=== PATIENT | male | born 1985 | race African-American/Black ===

== ENCOUNTER 2017-07-23 11:18 | Emergency (ER) | payer OTHER ==
[~2017-07-23] VITALS: Ht 188 cm; Wt 117.9 kg
[2017-07-23] MEDS ORDERED: IV NORMAL SALINE 1,000ML 1,000 ML IV ONE (12:00)
[2017-07-23 12:10] LABS: BASO # 0.1 x10^3/uL (0.0-0.2); BASO % 1 % (0-3); EOS # 0.1 x10^3/uL (0.0-0.7); EOS % 1 % (0-3); HEMATOCRIT 47.7 % (39.0-53.0); HEMOGLOBIN 15.5 g/dL (13.0-17.5); LYMPH # 1.3 x10^3/uL (1.0-4.8); LYMPH % 17 % (24-48); MEAN CORPUSCULAR HEMOGLOBIN 29 pg (25-35); MEAN CORPUSCULAR HGB CONC 33 g/dL (31-37); MEAN CORPUSCULAR VOLUME 88 fL (79-100); MONO # 0.9 x10^3/uL (0.0-1.1); MONO % 12 % (0-9); NEUT # 5.3 x10^3uL (1.8-7.7); NEUT % 70 % (31-73); PLATELET COUNT 241 x10^3/uL (140-400); RED BLOOD COUNT 5.39 x10^6/uL (4.30-5.70); RED CELL DISTRIBUTION WIDTH 14.1 % (11.5-14.5); WHITE BLOOD COUNT 7.7 x10^3/uL (4.0-11.0)
[2017-07-23] MEDS ORDERED: PROCHLORPERAZINE 10 MG/2 ML VIAL. IM ONE (12:15)
[2017-07-23] MEDS ORDERED: HYDROmorphone PF 1 MG/ML DISP.SYRIN IM ONE (12:15)
[2017-07-23 12:18] LABS: ALBUMIN 3.6 g/dL (3.4-5.0); ALBUMIN/GLOBULIN RATIO 0.9 (1.0-1.7); CALCIUM 8.9 mg/dL (8.5-10.1); CREATININE 1.1 mg/dL (0.7-1.3); GFR 93.3; POTASSIUM 4.2 mmol/L (3.5-5.1); TOTAL BILIRUBIN 0.4 mg/dL (0.2-1.0); TOTAL PROTEIN 7.8 g/dL (6.4-8.2)
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
--- NOTE | 2017-07-23 12:47 | RAD ---
Abdominal series dated 07/23/2017. No comparison available. Clinical data indication: Abdominal pain and nausea for one week. FINDINGS: Upright view of the chest shows normal heart and mediastinal contours. Lungs are clear without focal consolidation. Vascular interstitium within normal limits no pleural effusion or pneumothorax. Flat and upright views the abdomen show nondilated gas-filled loops of bowel throughout. No abnormal calcification. No air-fluid level or pneumoperitoneum on the upright view. No abnormal calcification. IMPRESSION: No acute radiographic abnormality. Nonobstructive bowel gas pattern. Electronically signed by: Eliezer Estrella MD (07/23/2017 12:44 PM) [facility] [place]
[2017-07-23 14:00] VITALS: BP 149/93
[2017-07-23 14:02] LABS: BACTERIA,URINE 0 /HPF (0-FEW); BILIRUBIN,URINE NEG (NEG); CLARITY,URINE HAZY; COLOR,URINE YELLOW; GLUCOSE,URINE NEG (NEG); NITRITE,URINE NEG (NEG); RBC,URINE 0 /HPF (0-2); SQUAMOUS EPITHELIAL CELL,UR OCC /LPF; UROBILINOGEN,URINE 4 mg/dL (0.2 mg/dL); WBC,URINE 0 /HPF (0-4)
== END 2017-07-23 14:08 | disposition home or self-care (01) ==
LOC: ER 11:18
DX: R10.30 Lower abdominal pain, unspecified (principal); K59.00 Constipation, unspecified; I10 Essential (primary) hypertension; F12.10 Cannabis abuse, uncomplicated
CPT/HCPCS: 36415; 74022; 80053; 81001; 85025; 96372; 99285; J0780; J1170; 96360; J7030

== ENCOUNTER 2020-05-17 22:51 | Emergency (ER) | payer OTHER ==
[~2020-05-17] VITALS: Ht 185.4 cm; Wt 136.0 kg
[2020-05-17 23:06] VITALS: BP 153/90
--- NOTE | 2020-05-17 23:56 | PHYS DOC ---
Past History Past Medical History: No Pertinent History, Hypertension Past Surgical History: No Surgical History Alcohol Use: None Drug Use: Marijuana Adult General Chief Complaint Chief Complaint: ABDOMINAL PAIN [facility] HPI Patient is a 34-year-old male who presents complaining of abdominal pain. Pain began one week ago after eating a cheeseburger. The pain is primarily located diffusely across the lower abdomen but at times radiates to the bilateral flanks. Pain is described as intermittent, and is at times sharp but at times described as dull. Eating makes the pain worse. Patient states that he was constipated last week so he took Dulcolax tablets without relief but he does state that he had a bowel movement this morning. He had some relief of the pain after having a bowel movement. He denies any fevers, unexpected weight changes, nausea, or vomiting. Patient states that he was seen for the same type of pain several years ago at which time he was diagnosed with constipation. He reports following up with a GI physician at that time and work-up included a colonoscopy that found several diverticula without any other abnormal findings. Admits good p.o. water intake but poor fiber intake Review of Systems Review of Systems Fourteen body systems of review of systems have been reviewed. See HPI for pert inent positives and negative responses, other gillis all other systems are negative, non-pertinent or non-contributory Allergies Allergies Allergies Coded Allergies Type Severity Reaction Last Updated Verified No Known Drug Allergies 05/17/20 No Physical Exam Physical Exam Constitutional: Well developed, well nourished, no acute distress, non-toxic appearance. HENT: Normocephalic, atraumatic, bilateral external ears normal, oropharynx moist, no oral exudates, nose normal. Eyes: PERRLA, EOMI, conjunctiva normal, no discharge. Neck: Normal range of motion, no tenderness, supple, no stridor. Cardiovascular: Heart rate regular, sinus rhythm, no murmurs rubs or gallops Lungs & Thorax: Bilateral breath sounds clear to auscultation Abdomen: Bowel sounds present but diminished diffusely, soft, mild tenderness to palpation diffusely without any guarding or rebound, no masses, no pulsatile masses. Nonsurgical abdomen, no peritoneal signs Skin: Warm, dry, no erythema, no rash. Back: No tenderness, no CVA tenderness. Extremities: No tenderness, no cyanosis, no clubbing, ROM intact, no edema. Neurologic: Alert and oriented X 3, grossly normal motor & sensory function, no focal deficits noted. Psychologic: Affect normal, judgement normal, mood normal. Current Patient Data Vital Signs Vital Signs Date Time Temp Pulse Resp B/P (MAP) Pulse Ox O2 Delivery O2 Flow Rate FiO2 05/17/20 23:06 98.3 82 18 153/90 (111) 97 Room Air EKG EKG [] Radiology/Procedures Radiology/Procedures [] Heart Score C/O Chest Pain: No Risk Factors: Risk Factors: DM, Current or recent (<one month) smoker, HTN, HLP, family history of CAD, obesity. Risk Scores: Risk Factors: DM, Current or recent (<one month) smoker, HTN, HLP, family history of CAD, obesity. Course & Med Decision Making Course & Med Decision Making Hemodynamically stable patient with history and physical exam consistent with constipation. Rectal exam offered to assess for fecal impaction but this was deferred by patient Discussed little role of further diagnostic work-up while in ER setting. Advised continued supportive care practices such as increasing p.o. fluid intake, fiber intake, daily exercise and utilizing Metamucil and senna/docusate prescription written prior to departure Strict return precautions were discussed with good understanding by patient, all questions and concerns addressed prior to ER departure in stable condition Dragon Disclaimer Antoinette Disclaimer This electronic medical record was generated, in whole or in part, using a voice recognition dictation system. Departure Departure: Impression: Primary Impression: Constipation Disposition: 01 DC HOME SELF CARE/HOMELESS Condition: STABLE Referrals: PCP,NO (PCP) Patient Instructions: Constipation, Adult Additional Instructions: You were seen for constipation. Make sure to drink plenty of fluids and eat lots of fruits and vegetables. Please aim to ingest at least 10 g of fiber daily. You should use metamucil and the prescribed combination of senna and Colace to help your bowel movements become more regular. Return to the ED if you develop abdominal pain, fever, black/bloody stools, vomiting, or any other new or concerning symptoms. Scripts Sennosides/Docusate Sodium (Senna-Docusate Sodium Tablet) 1 Each Tablet 2 TAB PO BID for constipation for 5 Days, #20 TAB 0 Refills Prov: MADDY RAPHAEL DO 05/18/20 MADDY RAPHAEL DO May 17, 2020 23:56
[2020-05-18] MEDS ORDERED: ACETAMINOPHEN 325 MG TABLET PO ONE
[2020-05-18] MEDS ORDERED: SENNOSIDES/DOCUSATE 8.6/50MG TABLET. PO PRN
[2020-05-18] MEDS ORDERED: SENN1TAB99 PO (00:03)
[2020-05-18] MEDS ORDERED: DOCUSATE SODIUM 100 MG CAPSULE PO ONE ×2 (00:21→00:30)
== END 2020-05-18 00:28 | disposition home or self-care (01) ==
LOC: ER 22:51
DX: K59.00 Constipation, unspecified (principal); I10 Essential (primary) hypertension
CPT/HCPCS: 99283